=== PATIENT | male | born 1985 | race Caucasian/White ===

== ENCOUNTER → 2022-04-16 | Outpatient (CLI) | payer OTHER ==
[2022-04-18 10:11] LABS: CHLAMYDIA BY NAA Positive (Negative); GONOCOCCUS BY NAA Negative (Negative); TRICH VAG BY NAA Negative (Negative)
== END | disposition home or self-care (01) ==
LOC: LAB SHORT 14:58 → LAB 14:58
PROVIDERS: Chiropractor
DX: N48.9 Disorder of penis, unspecified (principal); R36.9 Urethral discharge, unspecified
CPT/HCPCS: 86592; 87491; 87591; 87661

== ENCOUNTER 2023-09-20 12:21 | Emergency (ER) | payer OTHER ==
[~2023-09-20] VITALS: Ht 170.2 cm; Wt 81.7 kg
[2023-09-20 12:30] VITALS: BP 147/101
[2023-09-20] MEDS ORDERED: HYDACE25S PR (12:37)
[2023-09-20] MEDS ORDERED: TRIDERM28.4 GM TOP (12:37)
== END 2023-09-20 12:42 | disposition home or self-care (01) ==
LOC: ER 12:21
DX: K64.9 Unspecified hemorrhoids (principal); T14.8XXA Other injury of unspecified body region, initial encounter; F17.290 Nicotine dependence, other tobacco product, uncomplicated
CPT/HCPCS: 99282

== ENCOUNTER → 2023-10-10 | Outpatient (CLI) | payer OTHER ==
[~2023-10-10] MED LIST: HYDACE25S PR; TRIDERM28.4 GM TOP
[2023-10-13 23:26] LABS: HSV 1 SUBTYPE BY PCR Not Detected; HSV 2 SUBTYPE BY PCR Detected; HSV SUBTYPE SOURCE Lesion Swab
== END ==
LOC: LAB SHORT 11:37 → LAB 11:37
PROVIDERS: Registered Nurse Community Health
DX: N48.9 Disorder of penis, unspecified (principal)
CPT/HCPCS: 87529